=== PATIENT | female | born 1960 ===

== ENCOUNTER 2017-07-20 08:28 | Outpatient (CLI) | payer OTHER ==
--- NOTE | 2017-07-20 10:55 | Mammography Report ---
Screening mammogram: Routine views demonstrates a circumscribed 6 mm asymmetry in the upper outer right breast. No calcifications. The remainder of the breast pattern is generally fatty replaced and unremarkable. CAD used. Impression: Right breast asymmetry. Recommendation: Prior exams are been requested for comparison before final recommendation. BI-RADS CATEGORY: 0 = Needs additional imaging evaluation ACR BI-RADS MAMMOGRAPHIC CODES: 0 = Needs additional imaging evaluation; 1 = Negative; 2 = Benign; 3 = Probably benign; 4 = Suspicious; 5 = Malignant; 6 = Known biopsy-proven malignancy COMMENT: 1. Dense breast tissue, i.e., adenosis, fibrocystic changes, etc., may obscure an underlying neoplasm. 2. Approximately 10% of cancers are not detected with mammography. 3. A negative mammography report should not delay biopsy if a clinically suspicious mass is present.
== END 2017-07-20 08:29 | disposition home or self-care (01) ==
LOC: SPVWC 08:28
PROVIDERS: ATTEND Family Medicine
DX: Z12.31 Encounter for screening mammogram for malignant neoplasm of breast (principal)
CPT/HCPCS: 77067